=== PATIENT | female | born 1965 | race Caucasian/White ===

== ENCOUNTER 2018-06-05 12:30 | Emergency (ER) | payer OTHER ==
[2018-06-05] MEDS: fentaNYL CITRATE/PF 100 MCG/ 2ML AMP IVP ONE ×2 (12:50→13:11)
[2018-06-05 13:09] VITALS: BP 140/90
[2018-06-05 13:17] LABS: BASOPHILS % 0.5 (0.0-1.5); EOSINOPHILS % 2.4 % (0.0-6.8); MEAN CORPUSCULAR HEMOGLOBIN 31.1 pg (28.0-34.0); MEAN CORPUSCULAR VOLUME 95.4 fl (80.0-100.0); MONOCYTES % 5.6 % (0.0-11.0); NEUTROPHILS # 3.5 # k/uL (1.4-7.7)
[2018-06-05 13:33] LABS: eGFR (African) > 60; eGFR (Non-African) > 60
[2018-06-05] MEDS ORDERED: PIPERACILLIN SODIUM/TAZOBACTAM 3.375 GM VIAL IV ONE (13:37)
[2018-06-05] MEDS: DIPH,PERTUSS(ACELL),TET VAC/PF 0.5 ML DISP.SYRIN IM ONE (13:41)
[2018-06-05] MEDS: PIPERACILLIN SODIUM/TAZOBACTAM 3.375 GM VIAL IV SCH (13:49)
[2018-06-05] MEDS: 0.9 % SODIUM CHLORIDE 100 ML IV ONE (13:49)
[2018-06-05] MEDS: HYDROcodone /APAP 5/325 1 EACH TABLET PO ONE (14:08)
--- NOTE | 2018-06-05 14:26 | ED Physician Documentation ---
Animal Bite - HISTORIAN Historian: patient - HPI Stated Complaint: Dog bite Chief Complaint: Animal Bite Onset: today Where: other (sister in law's house) Animal: dog (pit bull) Appearance of Animal: appeared well Animal's Immunization Status: unknown Observation/ Capture of Animal: animal is known Context of Attack: "unprovoked" attack Severity of Injury: bitten Location of Injury: R lower extremity Associated Symptoms: pain Further Comments: yes (52 year old female patient present with pit bull bite to right lateral calf area. Patient states she walked by her [id number] pit bull who was on a chain, when he bit her. last tetanus unknown.) - ROS CONST: none EYES/ENT: none CVS/RESP: none NEURO: none GI/: none MS/SKIN/LYMPH: none - PAST HX Past History: none Immunizations: tetanus (given in ER today) Allergies/Adverse Reactions: Allergies Allergy/AdvReac Type Severity Reaction Status Date / Time No Known Allergies Allergy Verified 06/05/18 12:53 Home Medications: Ambulatory Orders Medication Instructions Recorded Amoxicillin/Potassium Clav 1 each PO BID #20 tablet 06/05/18 [Augmentin 875-125 Tablet] - SOCIAL HX Smoking History: cigarettes Drug Use: cocaine (history of IV use) - FAMILY HX Family History: denies: none - VITAL SIGNS Vital Signs: Vital Signs Temp Pulse Resp BP Pulse Ox 98.0 F 108 H 17 140/90 95 06/05/18 14:34 06/05/18 14:34 06/05/18 14:34 06/05/18 14:34 06/05/18 14:34 - REVIEWED ASSESSMENTS Nursing Assessment Reviewed: Yes Vitals Reviewed: Yes Progress - Progress Progress: Patient medicated for pain with IV fentanyl. Wound cleaning with chlorhexidine and irrigated with 1L NS IV zosyn given in ER. Tetanus updated. Patient does not have primary care doctor. Set up with [facility] for wound care follow up. Appointment on June 10 at 1:30 pm. Reviewed discharge instructions and wound care instructions. Patient verbalized understanding. ED Results Lab/Radiology - Lab Results Lab Results: Lab Results 06/05/18 06/05/18 13:10 13:10 WBC 5.80 K/ul K/ul (4.00-12.00) RBC 4.21 M/ul M/ul (3.90-5.20) Hgb 13.1 g/dL g/dL (12.0-16.0) Hct 40.2 % % (34.5-46.5) MCV 95.4 fl fl (80.0-100.0) MCH 31.1 pg pg (28.0-34.0) MCHC 32.6 g/dL g/dL (30.0-36.0) RDW 13.6 % % (11.3-14.3) Plt Count 341 K/mm3 K/mm3 (130-400) Neut % (Auto) 61.5 % % (39.0-79.0) Lymph % (Auto) 26.9 % % (16.0-50.0) [place] % (Auto) 5.6 % % (0.0-11.0) Eos % (Auto) 2.4 % % (0.0-6.8) Baso % (Auto) 0.5 (0.0-1.5) Neut # (Auto) 3.5 # k/uL # k/uL (1.4-7.7) Lymph # (Auto) 1.6 # k/uL # k/uL (0.6-4.0) [place] # (Auto) 0.3 # k/uL # k/uL (0.0-0.9) Eos # (Auto) 0.1 # k/uL # k/uL (0.0-0.6) Baso # (Auto) 0.0 # k/uL # k/uL (0.0-0.5) Reactive Lymphs % 3.1 % % (0.0-5.0) Reactive Lymphs # 0.2 # k/uL # k/uL (0.0-0.8) Sodium 143 mmol/L mmol/L (136-145) Potassium 4.2 mmol/L mmol/L (3.5-5.1) Chloride 109 mmol/L H mmol/L (98-107) Carbon Dioxide 30 mmol/L mmol/L (22-30) BUN 13 mg/dL mg/dL (7-17) Creatinine 0.80 mg/dL mg/dL (0.52-1.04) Estimated Creat Clear 105 Est GFR ( Amer) > 60 (60 - ) Est GFR (Non-Af Amer) > 60 (60 - ) Glucose 106 mg/dL mg/dL (74-106) Calcium 9.0 mg/dL mg/dL (8.4-10.2) Total Bilirubin < 0.1 mg/dL L mg/dL (0.2-1.3) AST 20 U/L U/L (15-46) ALT 32 U/L U/L (13-69) Alkaline Phosphatase 70 U/L U/L (38-126) Total Protein 6.7 g/dL g/dL (6.3-8.2) Albumin 3.6 g/dL g/dL (3.5-5.0) - Orders Orders: ED Orders Category Date Time Status Apply/change dressing NOW Care 06/05/18 13:49 Active Cleanse with NS and Chlorhexid 1T Care 06/05/18 12:[address] IV Lock 1T Care 06/05/18 12:36 Active TIBIA & FIBULA 2 VIEW [RAD] Stat Exams 06/05/18 Ordered CBC/PLATELET/DIFF Stat Lab 06/05/18 13:10 Completed CMP Stat Lab 06/05/18 13:10 Completed 0.9 % Sodium Chloride [Sodium Chloride] 100 ml Med 06/05/18 13:38 Discontinued IV .STK-MED Diph,Pertuss(Acell),Tet Vac/Pf [Adacel] Med 06/05/18 12:52 Discontinued 0.5 ml IM .ONCE ONE HYDROcodone /APAP 5/325 [[place] 5/325] Med 06/05/18 13:49 Discontinued 2 each PO NOW ONE Piperacillin Sodium/Tazobactam [Zosyn] Med 06/05/18 13:37 Discontinued 3.375 gm IV .STK-MED ONE Piperacillin Sodium/Tazobactam [Zosyn] Med 06/05/18 13:45 Discontinued 3.375 gm IV Q6 fentaNYL CITRATE/PF [Duragesic] Med 06/05/18 12:37 Discontinued 50 mcg IVP NOW ONE fentaNYL CITRATE/PF [Duragesic] Med 06/05/18 13:06 Discontinued 50 mcg IVP NOW ONE Animal Bite Physical Exam - Physical Exam General Appearance: moderate distress Skin: other (avulsion bite ) Neuro/Vascular/Tendon: no vascular compromise, oriented x3, sensation nml, CN's nml as tested, ROM nml Psych: anxious HEENT: atraumatic, BERTHA Neck: uninjured, nml inspection Resp/CVS: chest non-tender, breath sounds nml, heart sounds nml, no resp. distress, lungs clear, reg. rate & rhythm Abdomen: uninjured,nml inspection, non-tender Back: uninjured, nml inspection Extremities: other (avulsion bite to right lateral calf 9cm x 5 cm area; irregular) Discharge Clincal Impression: Dog bite Qualifiers: Encounter type: initial encounter Qualified Code(s): W54.0XXA - Bitten by dog, initial encounter Leg wound, right Qualifiers: Encounter type: initial encounter Qualified Code(s): S81.801A - Unspecified open wound, right lower leg, initial encounter Prescriptions: Amoxicillin/Potassium Clav [Augmentin 875-125 Tablet] 1 each PO BID #20 tablet Referrals: Primary Doctor,No [Primary Care Provider] - 2 Days Additional Instructions: Follow up Appointment: at [facility] - located in the main building Time: 1:30 pm Date: Sunday, June 10 Wound Care: Twice a day You can wash or shower after 24 hours. Do not soak the wound in water and make sure it is dry afterwards (gently pat the area dry with a clean towel). Do not get into a swimming pool, hot tub, [place] or river until your stitches are removed. To remove your dressing, gently pull it off. If needed, you can dampen it with water then gently pull it off. Clean the wound twice a day with hibiclens and rinse with water clean away any scabbed area Pack with wet 4x4; cover with 4x4 and wrap with kerlix Condition: Stable Disposition: 01 HOME, SELF-CARE Decision to Admit: NO Decision Time: 14:26
--- NOTE | 2018-06-05 19:55 | Diagnostic Imaging Report ---
GEENA ALAMO (TRAFFIC CONTROL FLAGGER) - ER [facility] [id number] [id number] Report Submission Date: Jun 05, 2018 1:21:28 PM CDT Patient Study Name: CHRISTINE BULLOCK Date: Jun 05, 2018 12:47:58 PM CDT Modality Type: DX Gender: F Description: LOWER EXTREMITY : 67 Institution: [facility] Physician: GEENA ALAMO (TRAFFIC CONTROL FLAGGER) - ER Right tibia and fibula History: Lacerations. Dog bite. AP and lateral projections of the right tibia and fibula were obtained which demonstrate a focal soft tissue laceration laterally at the mid lower leg. No osseous abnormalities are noted. No radiodense foreign object is seen. Small round calcifications consistent with phleboliths are present anteriorly. Impression: No osseous abnormality. Laceration laterally at the mid lower leg without evidence for foreign body. Electronically signed on Jun 05, 2018 1:21:28 PM CDT by: Esther SALAZAR
== END 2018-06-05 14:34 | disposition home or self-care (01) ==
LOC: ED 12:30
DX: S81.801A Unspecified open wound, right lower leg, initial encounter (principal); W54.0XXA Bitten by dog, initial encounter; Y92.9 Unspecified place or not applicable; Y93.9 Activity, unspecified; Y99.9 Unspecified external cause status
CPT/HCPCS: 73590; 80053; 85025; 90715; A9270; J2543; J3010; 90471; 96365; 96375; 99284; J7030; S1016